=== PATIENT | male | born 1960 | race American Indian/Alaskan Native ===

== ENCOUNTER 2019-09-01 22:43 | Emergency (ER) | payer MEDICARE ==
[2019-09-02 00:05] VITALS: BP 105/61
--- NOTE | 2019-09-02 03:47 | Emergency Department Report ---
HPI - General Chief Complaint: Shoulder Injury Time Seen by Provider: 09/02/19 03:20 - HPI HPI: 59-year-old -[place] male presents to the emergency department with complaint of a 2 day history of right shoulder pain. 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 He tried some aspirin for his symptoms without any relief. He has increased pain with movement of the right upper extremity. The patient says "I think it is bursitis or something." No numbness or paresthesias. ED Past Medical Hx - Past Medical History Previous Medical History?: Yes Hx CVA: Yes (left weakness) Additional medical history: murmur - Surgical History Past Surgical History?: No - Social History Smoking Status: Never Smoker Substance Use Type: None - Medications Home Medications: Home Medications Medication Instructions Recorded Confirmed Last Taken Type Cyclobenzaprine [Flexeril] 10 mg PO TID PRN #12 tablet 09/02/19 Unknown Rx ED Review of Systems ROS: Stated complaint: RT SHOULDER PAIN Other details as noted in HPI Comment: All other systems reviewed and negative Constitutional: denies: chills, fever Respiratory: denies: shortness of breath Cardiovascular: denies: chest pain Gastrointestinal: denies: abdominal pain Musculoskeletal: arthralgia, myalgia. denies: joint swelling Skin: denies: rash, lesions Neurological: denies: numbness, paresthesias Physical Exam - Physical Exam Vital Signs: Vital Signs 09/02/19 00:04 Temperature 99.8 F H Pulse Rate 77 Respiratory 16 Rate Blood Pressure 105/61 [Left] O2 Sat by Pulse 99 Oximetry Physical Exam: GENERAL: The patient is well-developed well-nourished. HEENT: Normocephalic. Atraumatic. Patient has moist mucous membranes. EYES: Extraocular motions are intact. NECK: Supple. Trachea is midline SKIN: Skin is warm and dry. NEURO: The patient is awake, alert, and oriented. The patient is cooperative. The patient has no focal neurologic deficits. Normal speech. MUSCULOSKELETAL: There is tenderness to palpation to the right lateral shoulder but no obvious deformity. There is some decreased extension and abduction of the right upper extremity secondary to pain at the shoulder. Radial pulse +2 over 4 to the affected right upper extremity. There is no evidence of acute injury. ED Course Vital Signs 09/02/19 00:04 Temperature 99.8 F H Pulse Rate 77 Respiratory 16 Rate Blood Pressure 105/61 [Left] O2 Sat by Pulse 99 Oximetry ED Medical Decision Making - Radiology Data Radiology results: report reviewed, image reviewed interpreted by me: X-ray of the right shoulder does not show any fracture, dislocation, or any acute process. RIGHT SHOULDER 3 VIEWS INDICATION / CLINICAL INFORMATION: Right shoulder pain for 2 days without known injury. COMPARISON: None available. FINDINGS: BONES / JOINT(S): There are mild to moderate degenerative changes involving the acromioclavicular joint. There is no evidence of fracture or dislocation. SOFT TISSUES: There is mild calcification along the superolateral margin of the humeral head. ADDITIONAL FINDINGS: The visualized right lung is clear. 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 - Medical Decision Making 59-year-old male presents to the emergency department with the complaint of some pain to the right lateral shoulder. He is neurovascularly intact. No obvious deformity or swelling. X-ray did not show any fracture or dislocation and was read by radiology as showing some osteoarthritis and calcific tendinopathy. There could be a combination of arthritis, bursitis, tendinitis. Patient was placed in an arm sling and given a referral for an orthopedist. He will return to the emergency Department with any worsening of his symptoms or any acute distress. - Differential Diagnosis fracture, dislocation, osteoarthritis, bursitis, tendinitis, rotator cuff i Critical Care Time: No Critical care attestation.: If time is entered above; I have spent that time in minutes in the direct care of this critically ill patient, excluding procedure time. ED Disposition Clinical Impression: Right shoulder pain Qualifiers: Chronicity: unspecified Qualified Code(s): M25.511 - Pain in right shoulder Osteoarthritis of shoulder Qualifiers: Osteoarthritis type: unspecified Laterality: right Qualified Code(s): M19.011 - Primary osteoarthritis, right shoulder Disposition: DC- TO HOME OR SELFCARE Is pt being admited?: No Condition: Stable Instructions: Osteoarthritis (ED), Arthralgia (ED) Additional Instructions: Please follow up with a primary care physician in the next few days. I am giving you a referral for a local orthopedist, Dr. Munoz, to follow up regarding your right shoulder pain. Return to the emergency Department with any worsening of your symptoms or any acute distress. You have been prescribed a muscle relaxer medication that can be sedating. Therefore, this medication cannot be taken prior to working, driving, being responsible for children, and cannot be mixed with alcohol of any quantity. Prescriptions: Cyclobenzaprine [Flexeril] 10 mg PO TID PRN #12 tablet PRN Reason: Muscle Spasm Referrals: FLOR MUNOZ MD [Staff Physician] - 3-5 Days Time of Disposition: 04:20
--- NOTE | 2019-09-02 04:09 | XRay Report ---
RIGHT SHOULDER 3 VIEWS INDICATION / CLINICAL INFORMATION: Right shoulder pain for 2 days without known injury. COMPARISON: None available. FINDINGS: BONES / JOINT(S): There are mild to moderate degenerative changes involving the acromioclavicular sharan nt. There is no evidence of fracture or dislocation. SOFT TISSUES: There is mild calcification along the superolateral margin of the humeral head. ADDITIONAL FINDINGS: The visualized right lung is clear. 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 Signer Name: Juice Begum MD Signed: 09/02/2019 4:05 AM Workstation Name: [id number]
[2019-09-02] MEDS ORDERED: IBUPROFEN 600 MG TAB PO ONE ×2 (04:59→05:01)
== END 2019-09-02 04:30 | disposition home or self-care (01) ==
LOC: ED 22:43
DX: M19.011 Primary osteoarthritis, right shoulder (principal); Z86.73 Personal history of transient ischemic attack (TIA), and cerebral infarction without residual deficits